=== PATIENT | male | born 1970 | race American Indian/Alaskan Native ===

== ENCOUNTER 2019-01-25 20:55 | Emergency (ER) | payer OTHER ==
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
[2019-01-26] MEDS ORDERED: TYLENOL PO ONE (00:41)
[2019-01-26] MEDS ORDERED: IBUPROFEN PO ONE (00:41)
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
[2019-01-26 05:21] VITALS: BP 153/97
== END 2019-01-26 02:20 | disposition home or self-care (01) ==
LOC: ED 20:55
DX: M62.838 Other muscle spasm (principal); M54.2 Cervicalgia; G44.209 Tension-type headache, unspecified, not intractable; V89.2XXA Person injured in unspecified motor-vehicle accident, traffic, initial encounter; Y93.89 Activity, other specified; Y92.488 Other paved roadways as the place of occurrence of the external cause; Y99.8 Other external cause status
CPT/HCPCS: 70450; 72125; 99283